=== PATIENT | female | born 1945 | race Asian ===

== ENCOUNTER 2018-10-11 20:15 | Emergency (ER) | payer MEDICARE, BC ==
[~2018-10-11] VITALS: Ht 162.6 cm; Wt 48.5 kg
[2018-10-11] MEDS ORDERED: LOSARTAN POTASS25 MG ORAL (20:38)
[2018-10-11] MEDS ORDERED: CELEXA20 MG ORAL (20:38)
--- NOTE | 2018-10-11 20:40 | NUR ---
ED Nurse Note: PT CAME FROM HOME TO ED C/O R KNEE PAIN SINCE 12PM TODAY. PER PT SHE WALKING DOWN THE STAIRS AND MISSED A STEP AND LANDED ON HER RIGHT KNEE. 04/01
--- NOTE | 2018-10-11 20:41 | NUR ---
ED Nurse Note: PT SKIN INTACT, NO REDNESS OR SWELLING PRESENT ON RIGHT KNEE. PER PT SHE ICED HER AFTER HER FALL. PT ABYS TRAUMA TO HEAD. Addendum: 10/11/18 at 2053 by PDELEON ED Nurse Note: PT SKIN INTACT, NO REDNESS OR SWELLING PRESENT ON RIGHT KNEE. PER PT SHE ICED HER RIGHT KNEE AFTER HER FALL. PT DENEIS TRAUMA TO HEAD.
--- NOTE | 2018-10-11 21:20 | Diagnostic Imaging Report ---
EXAM: XR Right Knee, 3 views CLINICAL HISTORY: PAIN TECHNIQUE: Three views of the right knee. COMPARISON: No relevant prior studies available. FINDINGS: Bones/joints: No acute fracture or traumatic malalignment. Small joint effusion. Quadriceps enthesophyte. Soft tissues: Unremarkable. IMPRESSION: 1. No acute fracture or traumatic malalignment. 2. Small joint effusion.
[2018-10-11] MEDS ORDERED: IBUPROFEN600 MG ORAL (21:31)
--- NOTE | 2018-10-11 21:32 | Emergency Room Report ---
History of Present Illness General Chief Complaint: Lower Extremity Injury Source: Patient Present Illness HPI This is a 72-year-old female with a history high blood pressure. She presents with treatment right knee pain. She is walking down the steps around noon today. She tripped and fell on both knees. He presents with chief complaint of right knee pain. She said pain is moderate. Pain is 8 out of 10. Worse when she bear weight. Better when she use off of it. No other injury. No loss of consciousness. No fever or chills. Allergies: Uncoded Allergies: PENICILLIN (Allergy, Unknown, 10/11/18) Patient History Past Medical History: see triage record, old chart reviewed Past Surgical History: other Pertinent Family History: none Social History: Denies: smoking Last Menstrual Period: 3 decades ago Now: No Immunizations: other Reviewed Nursing Documentation: PMH: Agreed; PSxH: Agreed Nursing Documentation-PMH Hx Hypertension: Yes Review of Systems Eye: Denies: eye pain, blurred vision ENT: Denies: ear pain, nose congestion, throat swelling Respiratory: Denies: cough, shortness of breath Cardiovascular: Denies: chest pain, palpitations Gastrointestinal: Denies: abdominal pain, diarrhea, nausea, vomiting Musculoskeletal: Reports: joint pain; Denies: back pain Skin: Denies: rash Neurological: Denies: headache, numbness Endocrine: Denies: increased thirst, increased urine Hematologic/Lymphatic: Denies: easy bruising All Other Systems: negative except mentioned in HPI Physical Exam Vital Signs Date Time Temp Pulse Resp B/P (MAP) Pulse Ox O2 Delivery O2 Flow Rate FiO2 10/11/18 20:30 98.2 75 16 183/90 96 Room Air vitals with high blood pressure Sp02 EP Interpretation: reviewed, normal General Appearance: well appearing, no apparent distress, alert Head: normocephalic, atraumatic Eyes: bilateral eye PERRL, bilateral eye EOMI ENT: hearing grossly normal, normal pharynx Neck: full range of motion, supple, no meningismus Respiratory: chest non-tender, lungs clear, normal breath sounds Cardiovascular #1: regular rate, rhythm, no murmur Gastrointestinal: normal bowel sounds, non tender, no mass, no organomegaly, no bruit, non-distended Musculoskeletal: back normal, normal range of motion, other - Right knee: There is mild effusion. No bony tenderness. Knee is stable. Full range of motion. Pulses normal Psychiatric: mood/affect normal Skin: warm/dry Procedures Splinting Splinting : Consent: Verbal Location: Right knee Pre-Made Type: knee immobilizer Pre-Proc Neuro Vasc Exam: normal Post-Proc Neuro Vasc Exam: normal Patient Tolerated: Well Complications: None Medical Decision Making Diagnostic Impression: Primary Impression: Right knee sprain Qualified Codes: S83.91XA - Sprain of unspecified site of right knee, initial encounter ER Course Patient with right knee injury with sprain/contusion. No fracture dislocation. No instability. We'll discharge home. Other X-Ray Diagnostic Results Other X-Ray Diagnostic Results : X-Ray ordered: Right knee x-rays # of Views/Limited Vs Complete: 3 View Indication: Pain EP Interpretation: Yes Interpretation: no dislocation, no soft tissue swelling, no fractures, other - Small effusion Impression: No acute disease Electronically Signed by: Jordy Macias MD Last Vital Signs Date Time Temp Pulse Resp B/P (MAP) Pulse Ox O2 Delivery O2 Flow Rate FiO2 10/11/18 20:30 98.2 75 16 183/90 96 Room Air Status: improved Disposition: HOME, SELF-CARE Condition: Stable Scripts Ibuprofen* (MOTRIN*) 600 Mg Tablet 600 MG ORAL THREE TIMES A DAY, #30 TAB 0 Refills Prov: Jordy Macias MD 10/11/18 Patient Instructions: Knee Sprain Additional Instructions: Elevate leg. Ice pack to the area. Follow-up with your doctor in 7 days. If still with pain, may need an MRI. Jordy Macias MD Oct 11, 2018 21:31
--- NOTE | 2018-10-11 21:39 | NUR ---
ER DISCHARGE NOTE: Patient is cleared to be discharged per ERMD, pt is aox4, on room air, with stable vital signs. pt was given dc and prescription instructions, pt was able to verbalize understanding, pt id band removed. pt is able to ambulate with steady gait with crutches. pt family member assisting. pt took all belongings.
[2018-10-11 21:48] VITALS: BP 183/90
== END 2018-10-11 21:39 | disposition home or self-care (01) ==
LOC: EMR 21:00
DX: S83.91XA Sprain of unspecified site of right knee, initial encounter (principal); I10 Essential (primary) hypertension; Z88.0 Allergy status to penicillin; W01.0XXA Fall on same level from slipping, tripping and stumbling without subsequent striking against object, initial encounter; Y92.9 Unspecified place or not applicable
CPT/HCPCS: 29505; 99283